=== PATIENT | male | born 2000 | race Caucasian/White ===

== ENCOUNTER 2021-09-12 20:39 | Emergency (ER) | payer BC, OTHER ==
[2021-09-13 12:05] LABS: SARS-CoV-2 PCR by NAA DETECTED (NotDetected)
== END 2021-09-12 21:30 | disposition home or self-care (01) ==
LOC: CSHERS 20:39
DX: U07.1 COVID-19 (principal); H66.91 Otitis media, unspecified, right ear
CPT/HCPCS: 87804; 99283; U0003; U0005